=== PATIENT | male | born 1995 | race African-American/Black ===

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

== ENCOUNTER → 2017-09-30 | Outpatient (CLI) | payer OTHER ==
--- NOTE | 2017-09-30 17:06 | DIAGNOSTIC IMAGING REPORT ---
CHEST 2 VIEWS ROUTINE CLINICAL HISTORY: M62.830 Muscle spasm of backM62.838 Muscle spasm of right should pain COMPARISON STUDY: No previous studies for comparison. FINDINGS: The bones soft tissues and hemidiaphragms are normal. The cardiomediastinal silhouette is normal. The lungs are clear. The pulmonary vasculature is normal. IMPRESSION: Negative chest. The above report was generated using voice recognition software. It may contain grammatical, syntax or spelling errors. Electronically signed by: Nick Nunn M.D. 09/30/2017 5:05 PM Dictated Date/Time: 09/30/2017 5:05 PM
== END | disposition home or self-care (01) ==
LOC: C.RAD1850 16:48
PROVIDERS: ATTEND Internal Medicine
DX: M62.830 Muscle spasm of back (principal); M62.838 Other muscle spasm; R52 Pain, unspecified